=== PATIENT | female | born 1930 | race Two or more races ===

== ENCOUNTER 2016-10-17 09:21 | Emergency (ER) | payer MEDICARE ==
[~2016-10-17] VITALS: Ht 137.2 cm; Wt 40.8 kg
[2016-10-17] MEDS ORDERED: Oxycodone/Acetaminophen 5-325 ORAL ONE (09:45)
[2016-10-17] MEDS ORDERED: PERCOCET 5-3251 EACH ORAL (10:59)
[2016-10-17 11:04] VITALS: BP 124/94
--- NOTE | 2016-10-17 11:08 | Emergency Room Report ---
History of Present Illness General Chief Complaint: Multiple Trauma/Fall Source: Patient, EMS Present Illness HPI 85 YOF presents with pain to left shoulder s/p accidental trip and fall in parking lot at [facility]. Pain is 4/10, non-radiating, sharp, worse with movement, localized to lateral left shoulder. Denies pain to left hand, forearm , upper arm. Denies hitting head, other injury or pain to anywhere else. Not on ASA, AC. Allergies: Coded Allergies: ASPIRIN (Unverified Allergy, Unknown, 10/17/16) Uncoded Allergies: ASPIRIN (Allergy, Unknown, 10/17/16) Patient History Past Medical History: other - Alzheimers Past Surgical History: none Pertinent Family History: none Social History: Denies: alcohol use, drug use, smoking Now: No Immunizations: UTD Reviewed Nursing Documentation: PMH: Agreed, PSxH: Agreed Nursing Documentation-PMH Past Medical History: No History, Except For Hx Neurological Problems: Yes - Alzheimers Review of Systems All Other Systems: negative except mentioned in HPI Physical Exam Vital Signs Date Time Temp Pulse Resp B/P Pulse Ox O2 Delivery O2 Flow Rate FiO2 10/17/16 09:16 98.1 81 16 186/101 98 Room Air Sp02 EP Interpretation: reviewed, normal General Appearance: normal inspection, well appearing, no apparent distress, alert, GCS 15, non-toxic, other - Very friendly, calm and well appearing elderly lady sitting upright in stretcher Head: normocephalic, atraumatic Eyes: bilateral eye EOMI, bilateral eye PERRL ENT: normal ENT inspection, hearing grossly normal, normal voice Neck: normal inspection, full range of motion, supple, no bony tend Respiratory: normal inspection, lungs clear, normal breath sounds, no respiratory distress, no retraction, no wheezing Cardiovascular #1: regular rate, rhythm, no edema Gastrointestinal: normal inspection, normal bowel sounds, non tender, soft, no guarding, no hernia Genitourinary: no CVA tenderness Musculoskeletal: normal inspection, back normal, no calf tenderness, pelvis stable, Jean-Paul's Sign negative, other - Left shoulder: no obvious deformity or loss of normal shoulder contour. Significant ttp to proximal shoulder joint, lateral deltoid area. No ttp to lower humerus, forearm, hand, wrist Neurologic: normal inspection, alert, oriented x3, responsive, sales representative printing III-XII nml as tested, motor strength/tone normal, speech normal Psychiatric: normal inspection, judgement/insight normal, mood/affect normal Skin: normal inspection, normal color, no rash Lymphatic: normal inspection Medical Decision Making Diagnostic Impression: Primary Impression: Fracture, humerus, neck Qualified Codes: S42.212A - Unspecified displaced fracture of surgical neck of left humerus, initial encounter for closed fracture ER Course Xrays: acute fx of left surgical neck of humerus on ED review Neurovascularly intact No open fracture Phone cx with Dr Montanez Recommends sling which was placed, outpatient follow up in 1-2 weeks Narcotic analgesia provided in ED - patient did not want IV narcotic DC home with Rx Percocet Will call for Ortho followup Last Vital Signs Date Time Temp Pulse Resp B/P Pulse Ox O2 Delivery O2 Flow Rate FiO2 10/17/16 09:16 98.1 81 16 186/101 98 Room Air Status: improved Disposition: HOME, SELF-CARE Condition: Improved Scripts Oxycodone/Acetaminophen 5-325* (PERCOCET 5-325 MG TABLET*) 1 Each Tablet 1 TAB ORAL Q6H Y for For Pain, #20 TAB Prov: MACI DIOP M.D. 10/17/16 Patient Instructions: Humerus Fracture Treated With Immobilization, Easy-to- Read Additional Instructions: - Follow up with Orthopedics doctor in 1-2 weeks - Keep sling on during day and night - Take percocet only for severe pain MACI DIOP M.D. Oct 17, 2016 11:08
[2016-10-17 11:16] VITALS: BP 124/94
--- NOTE | 2016-10-17 11:21 | Diagnostic Imaging Report ---
History: Pain. Technique: Frontal , lateral and transscapular Y. Views of the left shoulder are provided. Comparison: No prior study is available for comparison. Findings: Acute comminuted fracture of the proximal humeral head/neck junction is identified. Intra-articular extension is not excluded. There is no dislocation. Bony mineralization appears reduced. Lung volumes are low with probable scattered changes of chronic lung disease. Atherosclerotic vascular disease is noted. Small left pleural effusion may be present. Impression: Acute, comminuted proximal humeral head/neck junction fracture. Orthopedic consultation is advised. Low lung volumes with probable scattered changes of chronic lung disease and small left pleural effusion.
--- NOTE | 2016-10-18 08:43 | Diagnostic Imaging Report ---
History: Pain. Technique: Frontal and lateral views of the left humerus are provided. Comparison: No prior study is available for comparison. Findings: Acute comminuted fracture of the proximal humeral head with suspected intra-articular extension is identified. There is no dislocation. Bony mineralization appears reduced. If there is concern for concomitant rib fractures, dedicated views should be considered. Impression: Acute, comminuted proximal humeral head fracture with suspected intra-articular extension. If there is concern for concomitant rib fractures, dedicated views should be considered.
== END 2016-10-17 11:16 | disposition home or self-care (01) ==
LOC: EDBD 09:21 → EMR 09:40
DX: S42.212A Unspecified displaced fracture of surgical neck of left humerus, initial encounter for closed fracture (principal); W01.0XXA Fall on same level from slipping, tripping and stumbling without subsequent striking against object, initial encounter; Y93.9 Activity, unspecified; Y92.481 Parking lot as the place of occurrence of the external cause; G30.9 Alzheimer's disease, unspecified; F02.80 Dementia in other diseases classified elsewhere, unspecified severity, without behavioral disturbance, psychotic disturbance, mood disturbance, and anxiety; Z88.6 Allergy status to analgesic agent; M25.512 Pain in left shoulder; Y99.9 Unspecified external cause status
CPT/HCPCS: 29240; 99283